=== PATIENT | female | born 1980 | race Caucasian/White ===

== ENCOUNTER 2017-02-25 21:49 | Emergency (ER) | payer SELFPAY ==
[~2017-02-25] VITALS: Ht 160 cm; Wt 113.0 kg
[~2017-02-25 21:49] MED LIST: ARIP20TA6 PO; ESCI20TA PO
[2017-02-25 22:35] VITALS: Ht 160 cm; Wt 113.0 kg
[2017-02-26] MEDS ORDERED: ALBU18HF INHALATION (00:40)
[2017-02-26] MEDS ORDERED: D-ME473S18 PO (00:40)
[2017-02-26] MEDS ORDERED: IBUP-1542 PO (00:41)
--- NOTE | 2017-02-26 00:49 | ERD ---
ER Documentation Chief Complaint Date/Time DATE: 02/26/17 TIME: 00:42 Chief Complaint Cough and rib pain x2 days HPI 36-year-old smoker female with history of hypertension presents with chief complaint of cough 2 days. Associated symptoms include sore throat, dry mouth , shortness of breath, posttussive vomiting, and rhinorrhea. She currently denies chest pain, shortness of breath, chills and fevers. She denies history of asthma. She states that she has tried cough drops and aqiu-mjf-xoiallx Robitussin without relief. ROS All systems reviewed and are negative except as per history of present illness. Medications Home Meds Active Scripts Ibuprofen* (Motrin*) 600 Mg Tab, 600 MG PO Q6, #30 TAB Prov:Frances Nolan PA-C 02/26/17 Albuterol Sulfate* (Ventolin HFA*) 18 Gm Hfa.aer.ad, 2 PUFF INHALATION Q4H, #1 INHALER Prov:Frances Nolan PA-C 02/26/17 Dextromethorphan Hb-Promethazine Hcl (Promethazine DM Syrup) 473 Ml Syrup, 5 ML PO Q6H Y for COUGH for 5 Days, #4 OZ Prov:Frances Nolan PA-C 02/26/17 Reported Medications Aripiprazole* (Abilify*) 20 Mg Tablet, 30 MG PO DAILY 08/23/13 Escitalopram Oxalate* (Lexapro*) 20 Mg Tablet, 20 MG PO DAILY 08/23/13 Allergies Allergies: Coded Allergies: hydromorphone HCl (Verified Allergy, Intermediate, SOB, 08/23/13) latex (Verified Allergy, Intermediate, RASHES, 08/23/13) PMhx/Soc History of Surgery: Yes (CHOLECYSTECTOMY, D&C'S) Anesthesia Reaction: No Hx Neurological Disorder: No Hx Respiratory Disorders: Yes (CHRONIC BRONCHITIS, SOB) Hx Cardiac Disorders: No Hx Psychiatric Problems: Yes (BIPOLAR) Hx Miscellaneous Medical Probl: Yes (OBESITY, POLYCYSTIC OVARIAN DISEASE) Hx Alcohol Use: Yes Hx Substance Use: No Hx Tobacco Use: Yes Smoking Status: Current every day smoker Physical Exam Vitals Vital Signs Date Time Temp Pulse Resp B/P Pulse Ox O2 Delivery O2 Flow Rate FiO2 02/25/17 22:35 98.5 78 20 144/74 96 Physical Exam GENERAL: Non-toxic. No apparent signs of distress. HEENT: Atraumatic. Bilateral eyes are PERRL EOM intact. Normal conjunctiva, no injection. No eyelid or lower eyelid swelling noted. Ears: Normal tympanic membrane, no erythema or bulging. No ear canal swelling. No ear discharge. Nose : no nasal discharge. Throat: Oropharynx normal. Tongue pink and moist. Tonsillar erythema with no exudate or edema. Uvula is midline. No trismus. No pooling of secretions. No lymphadenopathy. LUNGS: Clear to auscultation. No accessory muscle use. No wheezing, no crackles. No signs or symptoms of respiratory distress. HEART: Regular rate and rhythm. No murmurs, clicks, rubs or gallops. EXTREMITIES: No peripheral cyanosis or edema. No focal pain or notable trauma. Full range of motion. Good capillary refill. NEURO: The patient moves all 4 extremities with 5/5 strength. Cranial nerves are grossly intact. Normal mental status for age. Good muscle tone. SKIN: There is no apparent rash, petechiae, erythema or swelling. Good skin turgor. Procedures/MDM Patient states that she is a smoker, smoking cessation was discussed for at least 3 minute minutes and the patient was warned about her health risks associated with smoking and advised to quit. Patient presented with cough 2 days. Associated symptoms include sore throat, dry mouth, and posttussive vomiting. Symptoms are likely due to viral etiology. On exam her lungs are clear to auscultation bilaterally. She has tonsillar erythema with no exudate or edema. Uvula is midline. No pooling of secretions. She is afebrile and appears to be in no acute distress. I explained that she may have acute bronchitis, she currently denies shortness of breath however states she has been short of breath at times over the course of the last 2 days. I prescribed an albuterol inhaler along with Phenergan DM for symptomatic relief. At this time of low suspicion for pneumonia, TB, pneumothorax, strep pharyngitis, peritonsillar abscess, retropharyngeal abscess , and sepsis. Patient warned about sedating effects of Phenergan DM, advised to only take this medication at night or when she plans on not driving or operating heavy machinery. At this time patient stable for discharge and outpatient management. Advised to follow-up with PCP in 1-2 days. List of [facility] provided. Return precautions discussed. Departure Diagnosis: Primary Impression: Cough Additional Impression: Acute bronchitis Bronchitis organism: unspecified organism Qualified Code: J20.9 - Acute bronchitis, unspecified organism Condition: Good Patient Instructions: Acute Bronchitis Referrals: [facility] YOU HAVE RECEIVED A MEDICAL SCREENING EXAM AND THE RESULTS INDICATE THAT YOU DO NOT HAVE A CONDITION THAT REQUIRES URGENT TREATMENT IN THE EMERGENCY DEPARTMENT. FURTHER EVALUATION AND TREATMENT OF YOUR CONDITION CAN WAIT UNTIL YOU ARE SEEN IN YOUR DOCTORS OFFICE WITHIN THE NEXT 1-2 DAYS. IT IS YOUR RESPONSIBILITY TO MAKE AN APPOINTMENT FOR [facility]. IF YOU HAVE A PRIMARY DOCTOR --you should call your primary doctor and schedule an appointment IF YOU DO NOT HAVE A PRIMARY DOCTOR YOU CAN CALL OUR PHYSICIAN REFERRAL HOTLINE AT IF YOU CAN NOT AFFORD TO SEE A PHYSICIAN YOU CAN CHOSE FROM THE FOLLOWING [facility] [address] [place]. [facility] [address] [facility] [facility] [address] [facility] [facility] [address] [facility]. [facility] [address] [facility] [facility]. [address] Additional Instructions: Call your primary care doctor TOMORROW for an appointment during the next 1-2 days.See the doctor sooner or return here if your condition worsens before your appointment time. Frances Nolan PA-C Feb 26, 2017 00:49
== END 2017-02-26 00:48 | disposition home or self-care (01) ==
LOC: FTE 21:49
DX: R05 Cough (principal); J20.9 Acute bronchitis, unspecified; F17.210 Nicotine dependence, cigarettes, uncomplicated; I10 Essential (primary) hypertension; E66.9 Obesity, unspecified; Z68.41 Body mass index [BMI] 40.0-44.9, adult; Z91.040 Latex allergy status
CPT/HCPCS: 99284